=== PATIENT | male | born 1985 | race Caucasian/White ===

== ENCOUNTER 2019-04-10 14:08 | Emergency (ER) | payer BC ==
[~2019-04-10] VITALS: Ht 188 cm; Wt 111.4 kg
[2019-04-10 14:22] VITALS: TEMP 96.9
[2019-04-10] MEDS ORDERED: MEDROL 4MG DOSPA4 MG PO (15:39)
[2019-04-10] MEDS ORDERED: FLEXERIL 1010 MG/TAB PO (15:39)
[2019-04-10] MEDS ORDERED: LIDODERM 5% PATC1 EA TP (15:40)
[2019-04-10 17:28] VITALS: BP 144/97; PULSE 99
== END 2019-04-10 17:29 | disposition home or self-care (01) ==
LOC: COL.ER 14:08
DX: M54.31 Sciatica, right side (principal)
CPT/HCPCS: J1885